=== PATIENT | male | born 1960 | race Caucasian/White ===

== ENCOUNTER → 2025-02-19 | Outpatient (CLI) | payer OTHER, SELFPAY ==
--- NOTE | 2025-02-19 07:54 | ART_ITS ---
Reason For Study Reason For Study: PVD Procedure A bilateral lower extremity continuous wave Doppler with analog waveform analysis,segmental pressures,and ankle brachial indexes without exercise. Left Segmental Pressures Left brachial= 159mmHg. Left high thigh = 156mmHg. Left low thigh = 144mmHg. Left calf = 118mmHg. Left posterior tibial artery = 112mmHg. Left dorsalis pedis artery = 115mmHg. Left digit = 79 mmHg. Right Segmental Pressures Right brachial= 147mmHg. Right high thigh = 90mmHg. Right low thigh = 90mmHg. Right calf = 55mmHg. Right posterior tibial artery = 54mmHg. Right dorsalis pedis artery = 46mmHg. Indices The right ankle brachial index by the posterior tibial artery is 0.34. The right ankle brachial index by the dorsalis pedis is 0.29. The left ankle brachial index by the posterior tibial artery is 0.70. The left ankle brachial index by the dorsalis pedis is 0.72. The left digital-brachial index is 0.50. VL/Lower Ext Art Exam w/o Exercis Interpretation Summary Right MARYLOU 0.34, severe arterial insufficiency. Doppler/PVR waveforms and segmen delia pressures reveal aorto-iliac, distal SFA/popliteal disease. Left MARYLOU 0.72, moderate arterial insufficiency. Doppler/PVR waveforms and segme ntal pressures reveal aorto-iliac, distal SFA/popliteal disease. Ordering Physician: Denny Dominguez Referring Physician: APOLLO DOMINGUEZ MD Performed By: Nuria Garcia RDCS/RVT
== END | disposition home or self-care (01) ==
LOC: CVS 07:46
PROVIDERS: PCP Family Medicine; Referring Provider Family Medicine; Visit Provider Family Medicine
DX: I73.9 Peripheral vascular disease, unspecified (principal)
CPT/HCPCS: 93923